=== PATIENT | female | born 1970 | race Caucasian/White ===

== ENCOUNTER 2017-05-10 03:34 | Emergency (ER) | payer OTHER ==
[~2017-05-10] VITALS: Ht 157.5 cm; Wt 64.5 kg
[2017-05-10 03:40] VITALS: Ht 157.5 cm; Wt 64.5 kg
[2017-05-10] MEDS ORDERED: ONDANSETRON 4 MG INJ IV STA (03:43)
[2017-05-10] MEDS ORDERED: SOD CHLORIDE 0.9% 1,000 ML IV STA (03:43)
[2017-05-10] MEDS ORDERED: morphine 4 MG/ML VIAL IV STA (03:43)
[2017-05-10] MEDS ORDERED: FAMOTIDINE 20 MG INJ IV STA (03:43)
--- NOTE | 2017-05-10 04:25 | RADRPT ---
PROCEDURE: CT Abdomen and pelvis without contrast. CLINICAL INDICATION: Abdominal pain. TECHNIQUE: CT scan of the abdomen and pelvis was performed on a multi-detector high-resolution CT scanner. Contiguous axial images were obtained from the lung bases to the ischial tuberosities wit hout intravenous contrast. Coronal and sagittal reformatted images were also obtained. Images were reviewed on the PACS workstation. One or more of the following dose reduction techniques were used: - Automated exposure control. - Adjustment of the mA and/or kV according to patient size. - Use of iterative reconstruction technique. Exam CTD/vol = 7.76 mGy. Total exam DLP = 438.16 mGy-cm. COMPARISON: None. FINDINGS: Evaluation of the lung bases demonstrates no pleural or parenchymal disease. Abdomen: The liver is normal in size. There is no focal mass or dilatation of the biliary tree. T he gallbladder is not distended. The spleen, pancreas and bilateral adrenal glands are within tiffanie l limits. Bilateral kidneys are normal in size with no contour deforming mass identified. There is no radiopaque renal or ureteral calculus identified. There is no hydronephrosis or hydroureter. T here is no retroperitoneal adenopathy. The abdominal aorta is of normal caliber. There is no abnormal bowel wall thickening or distension. There is no bowel obstruction or free air . The appendix is not visualized. There are no pericecal inflammatory changes to suggest appendici tis. There is no diverticulosis or diverticulitis. There is no ascites. Pelvis: The bladder is unremarkable. The uterus and adnexa are within normal limits. There is tra ce pelvic free fluid. There is no significant pelvic adenopathy. Evaluation of the osseous structures demonstrates no suspicious lytic or blastic lesion. IMPRESSION: Trace pelvic free fluid. Otherwise no acute abnormality identified within the abdomen and pelvis. .Jeff Brock MD, MD Date Time Electronically viewed and signed by .Jeff Brock MD, MD on 05/10/2017 04:25 .T/
[2017-05-10 04:46] LABS: BASOPHILS % 0.5 % (0.0-2.0); EOSINOPHILS # 0.2 10^3/ul (0.0-0.5); EOSINOPHILS % 1.9 % (0.0-7.0); HEMATOCRIT 34.3 % (37.0-47.0); HEMOGLOBIN 11.6 g/dl (12.0-16.0); LYMPHOCYTES % 23.6 % (15.0-51.0); MEAN CORPUSCULAR HGB CONC 33.8 g/dl (32.0-37.0); MEAN CORPUSCULAR VOLUME 85.8 fl (82.0-101.0); MEAN PLATELET VOLUME 11.3 fl (7.4-10.4); MONOCYTE # 0.5 10^3/ul (0.3-0.9); MONOCYTES % 5.5 % (0.0-11.0); NEUTROPHIL # 5.9 10^3/ul (1.6-7.5); PLATELET COUNT 216 10^3/UL (140-415); RED CELL DISTRIBUTION WIDTH 13.2 % (11.5-14.5); WHITE BLOOD COUNT 8.6 10^3/ul (4.8-10.8)
[2017-05-10 05:09] LABS: ALBUMIN 4.1 g/dl (3.3-4.9); ALBUMIN/GLOBULIN RATIO 1.41; BILIRUBIN,INDIRECT 0.1 mg/dl (0-1.1); BILIRUBIN,TOTAL 0.1 mg/dl (0.2-1.3); CALCIUM 9.3 mg/dl (8.4-10.2); CREATININE 0.69 mg/dl (0.44-1.00); POTASSIUM 3.6 mmol/L (3.5-5.1)
[2017-05-10 05:30] LABS: ADD UMIC NO; UR ASCORBIC ACID NEGATIVE (NEGATIVE); UR BILIRUBIN (Dip) NEGATIVE (NEGATIVE); UR BLOOD (Dip) NEGATIVE (NEGATIVE); UR CLARITY CLEAR (CLEAR); UR COLOR STRAW (YELLOW); UR GLUCOSE (Dip) NEGATIVE (NEGATIVE); UR KETONES (Dip) NEGATIVE (NEGATIVE); UR LEUKOCYTE ESTERASE (Dip) NEGATIVE Leu/ul (NEGATIVE); UR NITRITE (Dip) NEGATIVE (NEGATIVE); UR SPECIFIC GRAVITY (Dip) 1.006 (1.003-1.030); UR TOTAL PROTEIN (Dip) NEGATIVE (NEGATIVE); UR UROBILINOGEN (Dip) NEGATIVE (NEGATIVE)
--- NOTE | 2017-05-10 05:37 | ERA ---
ER Documentation Chief Complaint Date/Time DATE: 05/10/17 TIME: 05:34 Chief Complaint C/O abdominal pain radiating to back, on and off for a couple of days HPI This is a 47-year-old female who presents to the emergency room for evaluation of abdominal pain. The patient states that she has epigastric abdominal pain which sometimes radiates to her back. She states that it is been present on and off for the past 3 days. She has mild nausea associated with this however no vomiting. She denies any aggravating or relieving factors for her symptoms. She does state that she drinks 2 drinks of alcohol earlier tonight. ROS All systems reviewed and are negative except as per history of present illness. Allergies Allergies: Coded Allergies: No Known Allergy (Unverified , 05/10/17) PMhx/Soc Medical and Surgical Hx: pt denies Surgical Hx History of Surgery: No Anesthesia Reaction: No Hx Neurological Disorder: No Hx Respiratory Disorders: No Hx Cardiac Disorders: No Hx Psychiatric Problems: No Hx Miscellaneous Medical Probl: No Hx Alcohol Use: No Hx Substance Use: No Hx Tobacco Use: No Smoking Status: Never smoker Physical Exam Vitals Vital Signs Date Time Temp Pulse Resp B/P Pulse Ox O2 Delivery O2 Flow Rate FiO2 05/10/17 03:40 97.3 104 20 125/83 98 Physical Exam INITIAL VITAL SIGNS: Reviewed by me GENERAL: The patient is well developed and appropriate for usual state of health in no apparent distress HEENT: Pupils equal, round, and reactive to light. EOMI. There is no scleral icterus. NECK: C-spine is soft and supple, there is no meningismus. There is no cervical lymphadenopathy. LUNGS: Clear to auscultation bilaterally. There are no rales, wheezes or rhonchi. HEART: Regular rate and rhythm, no murmurs, clicks, rubs or gallops. ABDOMEN: Negative Pardo sign, epigastric tenderness to palpation, otherwise soft, non-tender, non-distended. There are bowel sounds in all four quadrants. No rebound or guarding. EXTREMITIES: There is no peripheral cyanosis or edema. No focal swelling or erythema. NEUROLOGICAL: The patient moves all four extremities with 5/5 strength. Cranial nerves II - XII are intact. Normal gait. Alert and oriented SKIN: There is no apparent rash or petechiae. HEME/LYMPHATIC: There is no evidence of excessive bruising or lymphedema. PSYCHIATRIC: The patient does not appear anxious or depressed. Result Diagram: 05/10/17 0400 05/10/17 0400 Results 24 hrs Laboratory Tests Test 05/10/17 04:00 05/10/17 05:04 White Blood Count 8.610^3/ul Red Blood Count 4.0010^6/ul Hemoglobin 11.6g/dl Hematocrit 34.3% Mean Corpuscular Volume 85.8fl Mean Corpuscular Hemoglobin 29.0pg Mean Corpuscular Hemoglobin Concent 33.8g/dl Red Cell Distribution Width 13.2% Platelet Count 88477^3/UL Mean Platelet Volume 11.3fl Neutrophils % 68.0% Lymphocytes % 23.6% Monocytes % 5.5% Eosinophils % 1.9% Basophils % 0.5% Nucleated Red Blood Cells % 0.0/100WBC Neutrophils # 5.910^3/ul Lymphocytes # 2.010^3/ul Monocytes # 0.510^3/ul Eosinophils # 0.210^3/ul Basophils # 0.010^3/ul Nucleated Red Blood Cells # 0.010^3/ul Sodium Level 145mmol/L Potassium Level 3.6mmol/L Chloride Level 106mmol/L Carbon Dioxide Level 24mmol/L Anion Gap 19 Blood Urea Nitrogen 12mg/dl Creatinine 0.69mg/dl Glucose Level 124mg/dl Calcium Level 9.3mg/dl Total Bilirubin 0.1mg/dl Direct Bilirubin 0.00mg/dl Indirect Bilirubin 0.1mg/dl Aspartate Amino Transf (AST/SGOT) 117IU/L Alanine Aminotransferase (ALT/SGPT) 106IU/L Alkaline Phosphatase 100IU/L Total Protein 7.0g/dl Albumin 4.1g/dl Globulin 2.90g/dl Albumin/Globulin Ratio 1.41 Lipase 134U/L Urine Color STRAW Urine Clarity CLEAR Urine pH 6.0 Urine Specific [place] 1.006 Urine Ketones NEGATIVEmg/dL Urine Nitrite NEGATIVEmg/dL Urine Bilirubin NEGATIVEmg/dL Urine Urobilinogen NEGATIVEmg/dL Urine Leukocyte Esterase NEGATIVELeu/ul Urine Hemoglobin NEGATIVEmg/dL Urine Glucose NEGATIVEmg/dL Urine Total Protein NEGATIVEmg/dl Current Medications Medications (Trade) Dose Ordered Sig/Yesenia Route PRN Reason Start Time Stop Time Status Last Admin Dose Admin Sodium Chloride (NS) 1,000 ml @ 1,000 mls/hr Q1H STAT IV 05/10/17 03:43 05/10/17 04:42 DC 05/10/17 03:55 Morphine Sulfate (morphine) 4 mg ONCE STAT IV 05/10/17 03:43 05/10/17 03:45 DC 05/10/17 03:55 Ondansetron HCl (Zofran Inj) 4 mg ONCE STAT IV 05/10/17 03:43 05/10/17 03:45 DC 05/10/17 03:54 Famotidine (Pepcid Iv) 20 mg ONCE STAT IV 05/10/17 03:43 05/10/17 03:45 DC 05/10/17 03:54 Procedures/MDM CT abdomen pelvis without: Trace pelvic free fluid. Otherwise no acute abnormality identified within the abdomen and pelvis. This 47-year-old female presents to the emergency room for evaluation of abdominal pain. The patient localizes abdominal pain to the midportion of the abdomen and did have tenderness on my examination, negative Pardo sign. The patient did have lab work obtained including a CAT scan. Patient's laboratories show transaminitis with no signs of elevated bilirubin. The patient was given morphine, Zofran and Pepcid. She underwent a CT of the abdomen and pelvis which did not show any acute abnormalities. When I reevaluated this patient she was nontoxic-appearing, she was hemodynamically stable, stated that her pain had completely resolved. I did advise this patient that she had slight elevations in her AST, and ALT and advised her to decrease her alcohol intake. The patient denies drinking every day. The patient could have a component of gastritis to her symptoms and will be discharged home at this time with a prescription for Zantac and instructions to return to the ER any point for reevaluation if her symptoms worsen. The patient verbalized understanding and is okay to plan of care at this time. Differential diagnoses entertained was broad with potential high acuity. Patient has been evaluated for appendicitis, cholecystitis, and other high risk medical and surgical causes of abdominal pain. Ultimately the patient's evaluation is nondiagnostic. Based on the patient's lack of risk factors, as well as the patient's clinical, laboratory, and imaging data, the patient appears to be low risk for these high risk causes of abdominal pain. Departure Diagnosis: Primary Impression: Abdominal pain Additional Impressions: Gastritis Transaminitis Condition: Stable ANTONIO JAVED DO May 10, 2017 05:37
[2017-05-10] MEDS ORDERED: RANI150T9 PO (05:38)
[2017-05-10 05:44] VITALS: BP 130/88; RESP 14
== END 2017-05-10 05:46 | disposition home or self-care (01) ==
LOC: E/R 03:34
DX: R10.13 Epigastric pain (principal); K29.70 Gastritis, unspecified, without bleeding; R74.0 Nonspecific elevation of levels of transaminase and lactic acid dehydrogenase [LDH]; R40.2142 Coma scale, eyes open, spontaneous, at arrival to emergency department; R40.2252 Coma scale, best verbal response, oriented, at arrival to emergency department; R40.2362 Coma scale, best motor response, obeys commands, at arrival to emergency department
CPT/HCPCS: 36415; 74176; 80053; 81003; 83690; 85025; 96374; 96375; J2270; J2405; J7030; Z7502; Z7610